=== PATIENT | male | born 1980 | race Caucasian/White ===

== ENCOUNTER → 2016-10-11 | Day surgery (SDC) | payer BC, OTHER ==
[~2016-10-11] MED LIST: Bupivacaine 0.5% 30 ML SDV ONE; Ertapenem 1 GM in Sodium Chloride 0.9% 100 ML IV ONE; Ketorolac 30 MG/ML SDV ONE; Lactated Ringers 1,000 ML IV SCH; Lidocaine 1% 50 ML MDV ONE; Lidocaine 1%/Sod Bicarbonate in NS 8.4% 1 ML Syringe IV PRN; Midazolam 1 MG/ML 2 ML SDV ONE; Ondansetron 4 MG/2 ML SDV ONE; Propofol 200 MG/20 ML SDV ONE; Sodium Chloride 0.9% 10 ML Syringe FLUSH PRN; fentaNYL 100 MCG/2 ML SDV ONE
--- NOTE | 2016-10-11 07:29 | PCM.PREANE ---
Preanesthetic Assessment - ANESTHESIA/TRANSFUSION/FAMILY HX Anesthesia/Transfusion History: Prior Anesthesia Family History of Anesthesia Reaction: No - REVIEW OF SYSTEMS Constitutional: Reports: no symptoms SUPERVISOR INSPECTION: Reports: no symptoms Respiratory: Reports: no symptoms Cardiovascular: Reports: no symptoms GI: Reports: no symptoms Other: Reports: none - PHYSICAL ASSESSMENT HR: 85 O2 Sat by Pulse Oximetry: 94 RR: 16 BP: 130/88 Temp: 97.6 C ASA Class: 2 Mental Status: alert & oriented x3 Airway Class: Mallampati = 1 Dentition: Reports: normal dentition Thyro-Mental Finger Breadths: 3 Mouth Opening Finger Breadths: 3 ROM/Head Extension: full Respiratory Status: lungs clear to auscultation bilaterally Cardiovascular Status: regular rate & rhythm, normal S1, S2, no murmur, blood pressure WNL - ALLERGIES Allergies/Adverse Reactions: Allergies Allergy/AdvReac Type Severity Reaction Status Date / Time Penicillins Allergy Cannot Verified 10/10/16 15:39 Remember - ANESTHESIA PLAN Preop Beta Vera: No Anesthesia Type Planned: MAC - ACKNOWLEDGEMENTS Pt an appropriate candidate for the planned anesthesia: Yes Alternatives and risks of anesthesia discussed w pt/guardian: Yes Pt/Guardian understands and agree with anesthesia plan: Yes PreAnesthesia Questionnaire - Past Health History Medical/Surgical History: Denies Medical/Surgical History HEENT History: Reports: None Cardiovascular History: Reports: None Respiratory History: Reports: None Gastrointestinal History: Reports: Hemorrhoids Genitourinary History: Reports: None [employer] History: Reports: None Musculoskeletal History: Reports: None Neurological History: Reports: None Psychiatric History: Reports: None Endocrine/Metabolic History: Reports: None Hematologic History: Reports: None Immunologic History: Reports: None Oncologic (Cancer) History: Reports: None Dermatologic History: Reports: None - Past Surgical History Head Surgeries/Procedures: Reports: None HEENT Surgical History: Reports: None Cardiovascular Surgical History: Reports: None Respiratory Surgical History: Reports: None GI Surgical History: Reports: None Female Surgical History: Reports: None Male Surgical History: Reports: None Endocrine Surgical History: Reports: None Neurological Surgical History: Reports: None Musculoskeletal Surgical History: Reports: Other (see below) ((L) arm surgery- multiple due to trauma, no anesthetic comp) Other Musculoskeletal Surgeries/Procedures:: right arm repair Oncologic Surgical History: Reports: None Dermatological Surgical History: Reports: None - SUBSTANCE USE Smoking Status *Q: Current Every Day Smoker - HOME MEDS Home Medications: Home Meds . [No Known Home Meds] 10/10/16 [History] - CURRENT (IN HOUSE) MEDS Current Meds: Current Medications Lactated Ringer's (Ringers, Lactated) 1,000 mls @ 125 mls/hr IV ASDIRECTED DAMARIS Stop: 10/11/16 23:59 Ertapenem 1 gm/ Sodium (Chloride) 100 mls @ 100 mls/hr IV ONETIME ONE Stop: 10/11/16 08:29 Lidocaine/Sodium Bicarbonate (Buffered Lidocaine 1% In Ns 8.4%) 0.25 ml IV ONETIME PRN PRN Reason: Prior to IV Start Stop: 10/11/16 23:59 Sodium Chloride (Saline Flush) 10 ml FLUSH ASDIRECTED PRN PRN Reason: Keep Vein Open Stop: 10/11/16 23:59 Discontinued Medications Fentanyl (Sublimaze) Confirm Administered Dose 100 mcg .ROUTE .STK-MED ONE Stop: 10/11/16 07:18 Midazolam HCl (Versed 1 Mg/Ml) Confirm Administered Dose 2 mg .ROUTE .STK-MED ONE Stop: 10/11/16 07:31 Propofol (Diprivan 20 Ml) Confirm Administered Dose 200 mg .ROUTE .STK-MED ONE Stop: 10/11/16 07:18
--- NOTE | 2016-10-11 08:40 | PCM48HPAN ---
Post Anesthesia Note - EVALUATION WITHIN 48HRS OF ANESTHETIC Vital Signs in Normal Range: Yes Patient Participated in Evaluation: Yes Respiratory Function Stable: Yes Airway Patent: Yes Cardiovascular Function Stable: Yes Hydration Status Stable: Yes Pain Control Satisfactory: Yes Nausea and Vomiting Control Satisfactory: Yes Mental Status Recovered: Yes
--- NOTE | 2016-10-11 08:40 | PCM.OPNOTE ---
- General Post-Op/Procedure Note Date of Surgery/Procedure: 10/11/16 Operative Procedure(s): 1. anoscopy. 2. 2 column rubber band ligation Findings: Enlarged right posterior and left lateral internal hemorrhoids which were uncomplicated Pre Op Diagnosis: Bleeding hemorrhoids Post-Op Diagnosis: 2 column internal hemorrhoids. Uncomplicated Anesthesia Technique: Local, MAC, Moderate sedation Primary Surgeon: Dc Salcido Pathology: None EBL in mLs: 0 Complications: None Condition: Good Free Text/Narrative:: After adequate IV sedation and analgesia was obtained the patient was placed in the prone jackknife position with his buttocks taped. The perianal region was prepped with Betadine and draped sterilely with 4 field towels. A perianal block was performed with Sensorcaine and lidocaine. After adequate relaxation, inspection and digital rectal examination were performed and were only remarkable for a bulging left lateral hemorrhoid and right posterior hemorrhoid. Anoscopy was performed to confirm the presence of these 2 hemorrhoidal columns. There were no fistulas or fissures seen. The sure shot hemorrhoidal banding device was then applied above the dentate line with respect to both hemorrhoidal columns and fired. Two rubber bands were placed proximal to each hemorrhoid in the rectal mucosa. There were no complications, and no bleeding.
[2016-10-11 08:44] VITALS: BP 106/78
== END | disposition home or self-care (01) ==
LOC: JD.SDS 07:05
PROVIDERS: ATTEND Surgery
DX: K64.8 Other hemorrhoids (principal); Z88.0 Allergy status to penicillin
CPT/HCPCS: 46946; J1885; J2250; J2405; J3010; J7120; 00902; J2704

== ENCOUNTER 2024-01-29 17:35 | Emergency (ER) | payer BC, MEDICAID ==
[2024-01-29] MEDS ORDERED: fentaNYL 100 MCG/2 ML SDV ONE (17:48)
[2024-01-29] MEDS: fentaNYL 100 MCG/2 ML SDV IVPUSH ONE (17:50)
[2024-01-29 17:58] VITALS: PULSE 74
[2024-01-29 18:06] LABS: BASOPHILS PERCENT AUTO 0.3 % (0.0-1.0); EOSINOPHILS ABSOLUTE AUTO 0.3 K/mm3 (0.0-0.4); HEMATOCRIT 49.2 % (42.0-52.0); HEMOGLOBIN 17.4 gm/dl (14.0-18.0); IMMATURE GRAN ABSOLUTE AUTO 0.15 K/mm3 (0.00-0.05); IMMATURE GRAN PERCENT AUTO 1.1 % (0.0-0.4); LYMPHOCYTES ABSOLUTE AUTO 2.2 K/mm3 (1.0-4.8); LYMPHOCYTES PERCENT AUTO 15.4 % (24.0-44.0); MEAN CORPUSCULAR HEMOGLOBIN 33.8 pg (28.0-32.0); MEAN CORPUSCULAR HGB CONC 35.4 g/dl (32.0-36.0); MEAN CORPUSCULAR VOLUME 95.5 fl (83.0-99.0); MEAN PLATELET VOLUME 11.1 fl (9.4-12.4); MONOCYTES ABSOLUTE AUTO 0.5 K/mm3 (0.0-0.8); MONOCYTES PERCENT AUTO 3.4 % (0.0-8.0); NEUTROPHILS ABSOLUTE AUTO 10.9 K/mm3 (1.8-7.7); NEUTROPHILS PERCENT AUTO 77.8 % (41.0-71.0); PLATELET COUNT,PLT 252 K/mm3 (150-400); RED BLOOD CELL COUNT 5.15 M/mm3 (4.52-5.90)
[2024-01-29 18:13] LABS: PROTHROMBIN TIME 10.7 SECONDS (9.7-12.0)
[2024-01-29 18:15] LABS: PTT,PARTIAL THROMBOPLSTIN TIME 23.5 SECONDS (21.7-31.4)
[2024-01-29] MEDS: Iopamidol 755 Mg/ML 100 ML Bottle IVPUSH ONE (18:19)
[2024-01-29 18:24] LABS: A/G RATIO 1.3 (1-2); ALBUMIN 4.3 g/dl (3.4-5.0); ANION GAP 17.5 (5-15); BILIRUBIN TOTAL 0.7 mg/dL (0.2-1.0); BUN/CREATININE RATIO 11.5 (14-18); CALCIUM 9.7 mg/dL (8.5-10.1); CREATININE 1.3 mg/dL (0.7-1.3); EST CRCL DRUG DOSING (CG) 84.31 mL/min; POTASSIUM,K 3.5 mEq/L (3.5-5.1); PROTEIN TOTAL,TP 7.5 g/dl (6.4-8.2)
[2024-01-29] MEDS ORDERED: Sodium Chloride 0.9% 100 ML IV SCH (18:30)
[2024-01-29 18:39] VITALS: BP 139/98
[2024-01-29] MEDS: Morphine 4 MG/ML Syringe IVPUSH ONE ×3 (18:44→22:42)
[2024-01-29] MEDS: Sodium Chloride 0.9% 1,000 ML IV ONE (18:57)
== END 2024-01-29 22:25 ==
LOC: JD.ED 17:35
DX: S22.42XA Multiple fractures of ribs, left side, initial encounter for closed fracture (principal); S27.0XXA Traumatic pneumothorax, initial encounter; S36.892A Contusion of other intra-abdominal organs, initial encounter; R94.5 Abnormal results of liver function studies; Z88.0 Allergy status to penicillin; W23.0XXA Caught, crushed, jammed, or pinched between moving objects, initial encounter
CPT/HCPCS: 36415; 70450; 71045; 71275; 72125; 72191; 74175; 80053; 85025; 85610; 85730; 86850; 86900; 86901; 96361; 96374; 96375; 96376; 99285; J2270; J3010; J7030; Q9967